=== PATIENT | female | born 1980 | race African-American/Black ===

== ENCOUNTER 2019-01-01 10:26 | Emergency (ER) | payer OTHER ==
[~2019-01-01] VITALS: Ht 170.2 cm; Wt 81.6 kg
[~2019-01-01 10:26] MED LIST: LANS1COM3 PO; NITR100C62 PO; ONDA4TAB7 PO; PANT40TA5 PO; RANI300T3 PO
[2019-01-01 10:33] VITALS: BP 149/92
--- NOTE | 2019-01-01 10:58 | PHYS DOC ---
Past Medical History Past Medical History: No Pertinent History Past Surgical History: No Surgical History Alcohol Use: None Drug Use: None Adult General Chief Complaint Chief Complaint: SORE THROAT HPI HPI Patient is a 38 year old [f__sex] who presents with [] Review of Systems Review of Systems Constitutional: Denies fever or chills [] Eyes: Denies change in visual acuity, redness, or eye pain [] HENT: Denies nasal congestion or sore throat [] Respiratory: Denies cough or shortness of breath [] Cardiovascular: No additional information not addressed in HPI [] GI: Denies abdominal pain, nausea, vomiting, bloody stools or diarrhea [] : Denies dysuria or hematuria [] Musculoskeletal: Denies back pain or joint pain [] Integument: Denies rash or skin lesions [] Neurologic: Denies headache, focal weakness or sensory changes [] Endocrine: Denies polyuria or polydipsia [] All other systems were reviewed and found to be within normal limits, except as documented in this note. Allergies Allergies Allergies Coded Allergies Type Severity Reaction Last Updated Verified No Known Drug Allergies 04/15/15 No Physical Exam Physical Exam Constitutional: Well developed, well nourished, no acute distress, non-toxic appearance. [] HENT: Normocephalic, atraumatic, bilateral external ears normal, oropharynx moist, no oral exudates, nose normal. [] Eyes: PERRLA, EOMI, conjunctiva normal, no discharge. [] Neck: Normal range of motion, no tenderness, supple, no stridor. [] Cardiovascular:Heart rate regular rhythm, no murmur [] Lungs & Thorax: Bilateral breath sounds clear to auscultation [] Abdomen: Bowel sounds normal, soft, no tenderness, no masses, no pulsatile masses. [] Skin: Warm, dry, no erythema, no rash. [] Back: No tenderness, no CVA tenderness. [] Extremities: No tenderness, no cyanosis, no clubbing, ROM intact, no edema. [] Neurologic: Alert and oriented X 3, normal motor function, normal sensory function, no focal deficits noted. [] Psychologic: Affect normal, judgement normal, mood normal. [] Current Patient Data Vital Signs Vital Signs Date Time Temp Pulse Resp B/P (MAP) Pulse Ox O2 Delivery O2 Flow Rate FiO2 01/01/19 10:33 100.5 70 18 149/92 (111) 95 Room Air 100.5 EKG EKG [] Radiology/Procedures Radiology/Procedures [] Course & Med Decision Making Course & Med Decision Making Pertinent Labs and Imaging studies reviewed. (See chart for details) [] Dragon Disclaimer Dragon Disclaimer This electronic medical record was generated, in whole or in part, using a voice recognition dictation system. Departure Departure Impression: Primary Impression: Influenza A Disposition: HOME, SELF-CARE Condition: STABLE Referrals: NO PCP (PCP) Patient Instructions: Influenza A (H1N1) Additional Instructions: Increase fluids and rest. Continue ibuprofen and Tylenol to control your fever. Do not return to work until your fever free for 24 hours. If worsening return to the emergency department. DIANNA KUO COOLER WORKER Jan 01, 2019 10:58
== END 2019-01-01 11:22 | disposition home or self-care (01) ==
LOC: ER 10:26
DX: J10.1 Influenza due to other identified influenza virus with other respiratory manifestations (principal)
CPT/HCPCS: 87070; 87880; 99283

== ENCOUNTER 2019-03-21 09:57 | Emergency (ER) | payer OTHER ==
[~2019-03-21] VITALS: Ht 167.6 cm; Wt 81.6 kg
[2019-03-21 10:13] VITALS: BP 145/77
[2019-03-21] MEDS ORDERED: TRAM-48 PO (10:51)
[2019-03-21] MEDS ORDERED: CHLO15MO2 PO (10:51)
[2019-03-21] MEDS ORDERED: PENI500T PO (10:52)
--- NOTE | 2019-03-21 10:53 | PHYS DOC ---
Past Medical History Past Medical History: No Pertinent History Past Surgical History: No Surgical History Alcohol Use: None Drug Use: None Adult General Chief Complaint Chief Complaint: DENTAL PROBLEM HPI HPI 38 y/o female presents to ER for c/o lt upper dental/gum pain and swelling. She reports she has had lt facial swelling- denies eye pain/vision changes. She reports she has had intermittent chills denies fever. She reports she has broken tooth which isn't recent lt upper side which intermittently becomes infected. She reports she has been able to eat/drink. She reports she took ibuprofen with minimal relief in sxs. She is a daily smoker. Review of Systems Review of Systems Constitutional: Denies fever. Reports chills Eyes: Denies change in visual acuity, redness, or eye pain [] HENT: Denies nasal congestion or sore throat. Reports lt upper dental/gum pain and swelling with lt facial swelling Respiratory: Denies cough or shortness of breath [] Cardiovascular: No additional information not addressed in HPI [] GI: Denies vomiting- reports intermittent nausea Musculoskeletal: Denies neck pain or joint pain [] Integument: Denies rash or skin lesions [] Neurologic: Denies headache, focal weakness or sensory changes. Denies dizziness Endocrine: Denies polyuria or polydipsia [] All other systems were reviewed and found to be within normal limits, except as documented in this note. Allergies Allergies Allergies Coded Allergies Type Severity Reaction Last Updated Verified No Known Drug Allergies 04/15/15 No Physical Exam Physical Exam Constitutional: Well developed, well nourished, no acute distress, non-toxic appearance. Clear speech- no pooling of secretions HENT: Normocephalic, atraumatic, bilateral ears normal, oropharynx moist- cigarette odor on breath, lt upper gum erythema/swelling at site of fx'd tooth- no palp. abscess and upper palate soft/nontender, no pharyngeal swelling/erythema- uvula midline, no oral exudates, nose normal. Lt cheek swelling without erythema- no orbital swelling. Eyes: PERRLA, conjunctiva normal, no discharge. [] Neck: Normal range of motion, no tenderness, supple, no stridor/gross adenopathy Cardiovascular:Heart rate regular rhythm, no murmur [] Lungs & Thorax: Bilateral breath sounds clear to auscultation- resp. equal/n onlabored Skin: Warm, dry, no erythema, no rash. [] Extremities: ROM intact, no edema. [] Neurologic: Alert and oriented X 3, normal motor function, normal sensory function, no focal deficits noted. [] Psychologic: Affect normal, judgement normal, mood normal. [] Current Patient Data Vital Signs Vital Signs Date Time Temp Pulse Resp B/P (MAP) Pulse Ox O2 Delivery O2 Flow Rate FiO2 03/21/19 10:13 98.7 60 18 145/77 (99) 99 Room Air 98.7 EKG EKG [] Radiology/Procedures Radiology/Procedures [] Course & Med Decision Making Course & Med Decision Making Pt was evaluated in the ER for c/o lt upper dental pain/swelling and on exam had erythema/swelling at site of fx'd tooth. No abscess visualized/palpated. Discussed need for f/u with dentist KIANNA and smoking cessation was discussed. Discussed discharge instructions were discussed with pt and plans for Rx for Peridex, antibiotics, and tramadol- with pt having no seizure hx. Advised on continued use of tylenol and/or ibuprofen. Pt encouraged to increase fluid intake. She was nontoxic in appearance and having no difficulty swallowing/talking. Will provide dental clinic resources with d/c paperwork and pt was educated on s&s to return to ER for. Dragon Disclaimer Dulce Disclaimer This electronic medical record was generated, in whole or in part, using a voice recognition dictation system. Departure Departure Impression: Primary Impression: Dental infection Disposition: 01 HOME, SELF-CARE Condition: STABLE Referrals: UNKNOWN PCP NAME (PCP) Patient Instructions: Dental Caries Additional Instructions: Drink plenty of fluids. Tylenol as needed for pain as directed on container. Avoid smoking. Call and schedule appointment with dentist as soon as possible for re-evaluation and further care. Scripts Penicillin V Potassium (PENICILLIN V POTASSIUM) 500 Mg Tablet 1 TAB PO TID, #30 TAB 0 Refills Prov: REFGELY FUENTES APRN 03/21/19 Tramadol Hcl (ULTRAM) 50 Mg Tablet 50 MG PO Q6HRS PRN for PAIN, #8 TAB 0 Refills Prov: REFFITTGELY HOUSE PIPING INSPECTOR 03/21/19 Chlorhexidine Gluconate (PERIDEX) 15 Ml Mouthwash 15-30 ML PO TID PRN for PAIN, #473 ML 0 Refills Swish and spit for dental pain Prov: GELY PRIETO APRN 03/21/19 GELY PRIETO APRN Mar 21, 2019 10:53
== END 2019-03-21 11:06 | disposition home or self-care (01) ==
LOC: ER 09:57
DX: K04.7 Periapical abscess without sinus (principal)
CPT/HCPCS: 99283

== ENCOUNTER 2019-06-17 12:32 | Emergency (ER) | payer SELFPAY ==
[~2019-06-17] VITALS: Ht 168.9 cm; Wt 81.6 kg
[~2019-06-17 12:32] MED LIST changes: +CHLO15MO2 PO; +METH4TAB2 PO; -PANT40TA5 PO; +PANT40TA77 PO; +PENI500T PO; +TRAM-48 PO
[2019-06-17 12:50] VITALS: BP 142/80
--- NOTE | 2019-06-17 15:36 | RAD ---
CT HEAD AND MAXILLOFACIAL WO, CT CERVICAL SPINE WO CONTRAST Indication: Head and face pain, neck pain. Exposure: One or more of the following individualized dose reduction techniques were utilized for this examination: 1. Automated exposure control 2. Adjustment of the mA and/or kV according to patient size 3. Use of iterative reconstruction technique. Technique: Standard imaging without intravenous contrast. No prior study available for comparison Head: No evidence of acute intracranial hemorrhage, mass effect, midline shift or abnormal extra-axial fluid collection. Ventricles and sulci are symmetric. Sky-white matter distinction is intact. Visualized orbits are unremarkable. No significant scalp swelling is identified. Partially visualized sinuses are clear. No evidence of acute skull abnormality. IMPRESSION: No evidence of acute intracranial hemorrhage. Facial bones: No evidence of nasal bone fracture. Orbital floors appear intact. No evidence of an acute fracture but a focal region of point tenderness is not specified. The sinuses appear clear without fluid level. Temporomandibular joints are intact. Maxillary molar lucency compatible with dental caries. There is also some bone lucency about the maxillary teeth. IMPRESSION: 1. No evidence of acute fracture. 2. Periodontal disease. Cervical spine: Visualized skull base appears grossly intact. Ring of C1 appears intact. C1 and C2 appears symmetric. Cervico-occipital junction is intact. Vertebral body height is intact. No evidence of acute fracture. No significant facet joint separation. Mild reversal the normal cervical lordosis, can be due to muscle spasm or patient positioning. Disc spaces are maintained. No evidence of significant osseous spinal canal narrowing. No significant prevertebral soft tissue swelling or hematoma. Partially visualized thyroid appears grossly symmetric. Thyroid appears symmetric. Lung apices demonstrate small bilateral patchy reticular opacities. IMPRESSION: 1. No evidence of acute fracture or traumatic subluxation. 2. Mild patchy reticular opacities in both lung apices. Nonspecific, could represent acute inflammatory or infectious etiology, or more chronic fibrosis. Consider chest x-ray or CT chest for further evaluation. Electronically signed by: Nino Shaffer MD (06/17/2019 3:32 PM) [facility]
[2019-06-17] MEDS ORDERED: HYDR-3164 PO (15:47)
[2019-06-17] MEDS ORDERED: ORPH100T PO (15:47)
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
== END 2019-06-17 15:54 | disposition home or self-care (01) ==
LOC: ER 12:32
DX: S16.1XXA Strain of muscle, fascia and tendon at neck level, initial encounter (principal); S09.8XXA Other specified injuries of head, initial encounter; V43.52XA Car driver injured in collision with other type car in traffic accident, initial encounter; Y93.89 Activity, other specified; Y92.410 Unspecified street and highway as the place of occurrence of the external cause; Y99.8 Other external cause status
CPT/HCPCS: 70450; 70486; 72125; 99284